=== PATIENT | male | born 1990 | race Caucasian/White ===

== ENCOUNTER 2018-08-10 12:31 | Emergency (ER) | payer MEDICAID, OTHER ==
[~2018-08-10] VITALS: Ht 180.3 cm; Wt 69.5 kg
[2018-08-10 12:51] VITALS: Ht 180.3 cm; Wt 69.5 kg
[2018-08-10] MEDS ORDERED: ACET1TAB40 PO (14:50)
[2018-08-10] MEDS ORDERED: IBUP-1542 PO (14:50)
--- NOTE | 2018-08-10 14:53 | ERD ---
ER Documentation Chief Complaint Chief Complaint bib self, cc: right hand pain, punched a wall HPI 28-year-old male presents after right hand pain began after hitting a wall in anger. He has no restricted range of motion or weakness, eating or lacerations. States he had a previous fracture of his right hand. ROS All systems reviewed and are negative except as per history of present illness. Medications Home Meds Active Scripts Acetaminophen with Codeine (Acetaminophen-Cod #3 Tablet) 1 Each Tablet, 1 TAB PO Q6H PRN for PAIN, #7 TAB Prov:ANA VEGA MD 08/10/18 Ibuprofen* (Motrin*) 600 Mg Tab, 600 MG PO Q6, #20 TAB Prov:ANA VEGA MD 08/10/18 Allergies Allergies: Coded Allergies: No Known Allergy (Verified , 08/10/18) PMhx/Soc Medical and Surgical Hx: pt denies Medical Hx, pt denies Surgical Hx Hx Alcohol Use: No Hx Substance Use: No Hx Tobacco Use: No Smoking Status: Never smoker FmHx Family History: No diabetes, No coronary disease, No other Physical Exam Vitals Vital Signs Date Temp Pulse Resp B/P (MAP) Pulse Ox O2 O2 Flow FiO2 Time Delivery Rate 08/10/18 98.3 89 19 126/65 100 12:51 (85) Physical Exam Const: No acute distress Head: Atraumatic Eyes: Normal Conjunctiva ENT: Normal External Ears, Nose and Mouth. Neck: Full range of motion. No meningismus. Resp: Clear to auscultation bilaterally Cardio: Regular rate and rhythm, no murmurs Abd: Soft, non tender, non distended. Normal bowel sounds Skin: No petechiae or rashes Back: No midline or flank tenderness Ext: No cyanosis, or edema tenderness and swelling of the right fifth metacarpal area. No restricted range of motion weakness. Neur: Awake and alert Psych: Normal Mood and Affect Procedures/MDM X-ray Hand 3V interpreted by me: Scaphoid: Normal Bones: Minimally displaced right fifth metacarpal fracture without significant displacement. Joints: No dislocation Foreign body: None impression-minimally displaced right fifth metacarpal base fracture. Patient placed in a right arm sling, and right boxer splint. Patient is neurovascular intact after splint. Right fifth metacarpal fracture after punching a wall. There is no evidence of infection, ischemia or deficits. Discharged home with orthopedic follow-up. He was advised he may need authorization from primary doctor for orthopedist visit. The patient was stable with no new complaints during the ER course. Clinically, there is no current evidence to suggest meningitis, sepsis, acute abdomen, pneumonia, stroke, acute coronary syndrome, pulmonary embolism, aortic dissection or any other emergent condition appearing to require further evaluation or hospitalization. Patient counseled regarding my diagnostic impression and care plan. Prior to discharge all questions answered. Pt agrees with treatment plan and understands strict return precautions. Pt is instructed to follow up with primary care provider within 24-48 hours. Precautionary instructions provided including instructions to return to the ER if not improving or for any worsening or changing symptoms or concerns. Departure Diagnosis: Primary Impression: Right hand fracture Encounter type: initial encounter Fracture type: closed Qualified Codes: S62.91XA - Unspecified fracture of right wrist and hand, initial encounter for closed fracture Condition: Stable Patient Instructions: Fracture, Boxer's Referrals: ALONZO FOLEY MDIN RADHA RIOS Additional Instructions: See orthopedist for further evaluation and treatment. May need authorization from primary care doctor. Recheck otherwise for new or worsening symptoms. ANA VEGA MD Aug 10, 2018 14:53
[2018-08-10 15:41] VITALS: BP 125/66; PULSE 75; RESP 20
== END 2018-08-10 15:42 | disposition home or self-care (01) ==
LOC: FTE 12:31
DX: S62.316A Displaced fracture of base of fifth metacarpal bone, right hand, initial encounter for closed fracture (principal); W22.01XA Walked into wall, initial encounter; Y92.9 Unspecified place or not applicable
CPT/HCPCS: 29125; 73130; Z7502